=== PATIENT | male | born 1960 | race Caucasian/White ===

== ENCOUNTER 2019-05-27 17:11 | Inpatient (IN) | payer MEDICARE, MEDICAID ==
[~2019-05-27] VITALS: Ht 170.2 cm; Wt 61.8 kg
[~2019-05-27 17:11] MED LIST: ACET-1008 PO; ALEN70TA60 PO; CEPH-357 PO; COL100C PO; FLO0.4C PO; HYDR-4383 PO; LORA1TAB PO; MULT1TAB PO; REM15T PO; RISP1TAB47 PO; TAMS0.4C32 PO; VAL5T PO; ZOF4T PO; [UNRECOGNIZED DRUG - CODE] PO
[2019-05-27 17:32] LABS: BASOPHILS % (AUTO) 0.1 % (0-1); EOSINOPHILS % (AUTO) 0.1 % (0-6); HEMATOCRIT 36.5 % (42.0-52.0); HEMOGLOBIN 12.5 g/dl (14.0-17.9); LYMPHOCYTES # (AUTO) 1.1 X10'3 (1.1-4.8); LYMPHOCYTES % (AUTO) 5.6 % (21-51); MEAN CORPUSCULAR HEMOGLOBIN 29.1 PG (27.0-31.0); MEAN CORPUSCULAR HGB CONC 34.1 g/dL (33.0-36.5); MEAN CORPUSCULAR VOLUME 85.5 FL (78-98); MEAN PLATELET VOLUME 7.2 FL (7.4-10.4); MONOCYTES # (AUTO) 1.1 X10'3 (0-0.9); MONOCYTES % (AUTO) 5.7 % (2-12); NEUTROPHILS % (AUTO) 88.5 % (42-75); PLATELET COUNT 238 X10'3 (140-440); RED BLOOD COUNT 4.27 X10'6 (4.70-6.10); WHITE BLOOD COUNT 19.2 X10'3 (4.5-11.0)
[2019-05-27 17:45] LABS: PARTIAL THROMBOPLASTIN TIME 28 SECONDS (22-32)
[2019-05-27 17:48] LABS: ALANINE AMINOTRANSFERASE 46 U/L (12-78); ALBUMIN 2.9 G/DL (3.4-5.0); ALBUMIN/GLOBULIN RATIO 0.7 (1.1-1.5); ALKALINE PHOSPHATASE 121 IU/L (46-116); ANION GAP 10 (8-16); ASPARTATE AMINO TRANSFERASE 34 U/L (10-37); BILIRUBIN,TOTAL 0.4 MG/DL (0.1-1.0); BLOOD UREA NITROGEN 18 MG/DL (7-18); CALCIUM 8.3 MG/DL (8.5-10.1); CHLORIDE 99 MMOL/L (99-107); CREATININE 1.29 MG/DL (0.60-1.10); GLUCOSE 135 MG/DL (70-104); POTASSIUM 3.7 MMOL/L (3.5-5.1); SODIUM 136 MMOL/L (135-145); TOTAL CARBON DIOXIDE 26.7 MMOL/L (24-32); TOTAL PROTEIN 6.8 G/DL (6.4-8.2); eGFR 57 ML/MIN
[2019-05-27] MEDS ORDERED: normal saline 1000ML IV soln IVB ONE (18:55)
[2019-05-27] MEDS ORDERED: vancomycin/NS 1 GM ADD-VANTAGE 250 ML IV ONE (18:55)
[2019-05-27 19:47] LABS: CLARITY,URINE CLEAR (Clear); COLOR,URINE YELLOW (Yellow); GLUCOSE, URINE NEGATIVE (Neg); KETONES,URINE 40 mg/dl (Neg); LEUKOCYTE ESTERASE ,URINE NEGATIVE (Neg); NITRITES, URINE NEGATIVE (Neg); OCCULT BLOOD,URINE NEGATIVE (Neg); PROTEIN,URINE 30 mg/dl (Neg)
[2019-05-27] MEDS ORDERED: AMIT10TA6 PO (19:59)
[2019-05-27 20:02] LABS: UA COLLECTION TYPE NON-SPECIFIED
[2019-05-27 20:03] LABS: BACTERIA,URINE FEW /HPF (Neg); CAL OXALATE CRYSTALS FEW /HPF (NEGATIVE); MUCUS STRANDS FEW /LPF (Neg); RBC,URINE 0-2 /HPF (0-2); SQUAMOUS EPITHELIAL CELL,UR FEW /LPF (FEW); WBC,URINE NONE SEEN /HPF (0-4)
[2019-05-27] MEDS ORDERED: DOCU-261 PO (20:37)
[2019-05-27] MEDS ORDERED: FLUV100T3 PO (20:37)
[2019-05-27] MEDS ORDERED: IBUP-1984 PO (20:37)
[2019-05-27] MEDS ORDERED: POLY17PO10 PO (20:37)
[2019-05-27] MEDS ORDERED: PROM25TA14 PO (20:37)
[2019-05-27] MEDS ORDERED: FLUV100C2 PO (20:37)
[2019-05-27] MEDS ORDERED: normal saline 1000ml 1,000 ML IV SCH (21:09)
[2019-05-27] MEDS ORDERED: potassium CL 10mEq/100ml bag 100 ML IV PRN ×2 (21:10)
[2019-05-27] MEDS ORDERED: ondansetron/PF 4mg/2ml inj IV PRN (21:10)
[2019-05-27] MEDS ORDERED: potassium Cl 20 mEq SR tablet PO PRN (21:10)
--- NOTE | 2019-05-27 22:58 | NUR ---
NINO: [id number] PARTH: [id number] JILL: [phone]
--- NOTE | 2019-05-27 23:15 | NUR ---
Patient in room [facility]. I have received report from VAISHALI IN ER and had the opportunity to ask questions and assume patient care.
[2019-05-27 23:30] VITALS: BP 134/84
[2019-05-27] MEDS: acetaminophen 325mg tablet PO PRN (23:44)
[2019-05-28] MEDS: piperacillin/tazo 3.375gm/50ml 50 ML IV SCH ×3 (01:30→16:00)
[2019-05-28 06:12] LABS: BASOPHILS % (AUTO) 0.1 % (0-1); EOSINOPHILS % (AUTO) 0.1 % (0-6); HEMOGLOBIN 12.3 g/dl (14.0-17.9); LYMPHOCYTES % (AUTO) 5.6 % (21-51); MEAN CORPUSCULAR HEMOGLOBIN 29.2 PG (27.0-31.0); MEAN CORPUSCULAR HGB CONC 34.1 g/dL (33.0-36.5); MEAN CORPUSCULAR VOLUME 85.6 FL (78-98); MEAN PLATELET VOLUME 7.5 FL (7.4-10.4); MONOCYTES % (AUTO) 5.7 % (2-12); NEUTROPHILS # (AUTO) 16.1 X10'3 (1.8-7.7); NEUTROPHILS % (AUTO) 88.5 % (42-75); PLATELET COUNT 266 X10'3 (140-440); RED BLOOD COUNT 4.21 X10'6 (4.70-6.10); RED CELL DISTRIBUTION WIDTH 13.9 % (11.5-14.5); WHITE BLOOD COUNT 18.2 X10'3 (4.5-11.0)
[2019-05-28 06:23] LABS: ALBUMIN 2.6 G/DL (3.4-5.0); ANION GAP 12 (8-16); BLOOD UREA NITROGEN 13 MG/DL (7-18); BUN/CREATININE RATIO 14.6 (5.4-32.0); CALCIUM 7.7 MG/DL (8.5-10.1); CHLORIDE 105 MMOL/L (99-107); CREATININE 0.89 MG/DL (0.60-1.10); GLUCOSE 93 MG/DL (70-104); POTASSIUM 3.6 MMOL/L (3.5-5.1); SODIUM 141 MMOL/L (135-145); TOTAL CARBON DIOXIDE 24.1 MMOL/L (24-32); eGFR 87 ML/MIN
--- NOTE | 2019-05-28 06:45 | NUR ---
Problems reprioritized. Patient report given, questions answered & plan of care reviewed with YOSSI.
--- NOTE | 2019-05-28 06:50 | NUR ---
Patient in room [facility]. I have received report from JOLENE MONTE and had the opportunity to ask questions and assume patient care.
[2019-05-28] MEDS: vancomycin/NS 1 GM ADD-VANTAGE 250 ML IV SCH ×2 (07:37→20:19)
[2019-05-28] MEDS: docusate sod 100mg capsule PO SCH ×3 (07:37→20:12)
[2019-05-28] MEDS: lactobacillus rhamnosus 10,000 MMU CELLS/CAPSULE PO SCH ×2 (07:37→07:39)
[2019-05-28] MEDS: heparin, porcine 5000 units/ml vial SQ SCH ×2 (07:38→20:19)
[2019-05-28 08:00] VITALS: BP 110/57
[2019-05-28] MEDS: K and/or MAG REPLACEMENT MC SCH (08:00)
[2019-05-28] MEDS: fluvoxamine 25 MG tablet PO SCH ×2 (10:55→20:14)
[2019-05-28 12:00] VITALS: BP 118/64
[2019-05-28] MEDS ORDERED: proMETHazine 25mg tablet PO PRN (12:00)
[2019-05-28] MEDS: risperiDONE 0.5mg tablet PO SCH ×2 (12:11→20:14)
[2019-05-28] MEDS: HYDROcodone/acetaminophen 5mg/325mg tablet PO PRN (13:17)
--- NOTE | 2019-05-28 18:40 | NUR ---
Problems reprioritized. Patient report given, questions answered & plan of care reviewed with JOLENE Tijerina.
--- NOTE | 2019-05-28 18:41 | NUR ---
Patient in room [facility]. I have received report from JOLENE Gaona and had the opportunity to ask questions and assume patient care.
[2019-05-28 20:00] VITALS: BP 130/66
[2019-05-28] MEDS: mirtazapine 15mg tablet PO SCH (20:13)
[2019-05-29] MEDS: piperacillin/tazo 3.375gm/50ml 50 ML IV SCH
[2019-05-29 00:21] VITALS: BP 108/55
--- NOTE | 2019-05-29 06:22 | NUR ---
Problems reprioritized. Patient report given, questions answered & plan of care reviewed with JOLENE Swanson.
--- NOTE | 2019-05-29 06:25 | NUR ---
Patient in room [facility]. I have received report from JOLENE Tijerina and had the opportunity to ask questions and assume patient care.
[2019-05-29 07:07] VITALS: BP 107/48
[2019-05-29] MEDS ORDERED: VANCOMYCIN LEVEL IV ONE (07:30)
[2019-05-29 07:41] LABS: BASOPHILS # (AUTO) 0.1 X10'3 (0-0.2); BASOPHILS % (AUTO) 0.3 % (0-1); EOSINOPHILS # (AUTO) 0.1 X10'3 (0-0.9); EOSINOPHILS % (AUTO) 0.5 % (0-6); HEMATOCRIT 32.1 % (42.0-52.0); HEMOGLOBIN 10.7 g/dl (14.0-17.9); LYMPHOCYTES # (AUTO) 1.3 X10'3 (1.1-4.8); LYMPHOCYTES % (AUTO) 7.4 % (21-51); MEAN CORPUSCULAR HEMOGLOBIN 28.9 PG (27.0-31.0); MEAN CORPUSCULAR HGB CONC 33.5 g/dL (33.0-36.5); MEAN CORPUSCULAR VOLUME 86.4 FL (78-98); MEAN PLATELET VOLUME 7.2 FL (7.4-10.4); MONOCYTES # (AUTO) 1.4 X10'3 (0-0.9); MONOCYTES % (AUTO) 7.8 % (2-12); NEUTROPHILS # (AUTO) 15.2 X10'3 (1.8-7.7); PLATELET COUNT 258 X10'3 (140-440); RED BLOOD COUNT 3.71 X10'6 (4.70-6.10); RED CELL DISTRIBUTION WIDTH 13.7 % (11.5-14.5); WHITE BLOOD COUNT 18.2 X10'3 (4.5-11.0)
[2019-05-29 07:55] LABS: ALBUMIN 2.1 G/DL (3.4-5.0); ANION GAP 9 (8-16); BLOOD UREA NITROGEN 12 MG/DL (7-18); BUN/CREATININE RATIO 12.6 (5.4-32.0); CALCIUM 7.5 MG/DL (8.5-10.1); CHLORIDE 104 MMOL/L (99-107); CREATININE 0.95 MG/DL (0.60-1.10); GLUCOSE 109 MG/DL (70-104); POTASSIUM 3.2 MMOL/L (3.5-5.1); SODIUM 138 MMOL/L (135-145); TOTAL CARBON DIOXIDE 25.1 MMOL/L (24-32); eGFR 81 ML/MIN
[2019-05-29] MEDS: multivitamins, therapeutics tablet PO SCH (07:57)
[2019-05-29] MEDS: docusate sod 100mg capsule PO SCH ×4 (07:57→20:26)
[2019-05-29] MEDS: lactobacillus rhamnosus 10,000 MMU CELLS/CAPSULE PO SCH ×2 (07:57→07:59)
[2019-05-29] MEDS: risperiDONE 0.5mg tablet PO SCH ×2 (07:58→20:26)
[2019-05-29] MEDS: fluvoxamine 25 MG tablet PO SCH ×2 (07:58→22:50)
[2019-05-29] MEDS: polyethylene glycol 3350 17gm powd pack PO SCH (07:58)
[2019-05-29] MEDS: vancomycin/NS 1 GM ADD-VANTAGE 250 ML IV SCH (07:58)
[2019-05-29] MEDS: K and/or MAG REPLACEMENT MC SCH (08:00)
[2019-05-29] MEDS: heparin, porcine 5000 units/ml vial SQ SCH ×2 (08:08→20:27)
[2019-05-29] MEDS: potassium Cl 20 mEq SR tablet PO PRN ×3 (09:53→22:50)
[2019-05-29 11:00] VITALS: BP 105/66
--- NOTE | 2019-05-29 12:32 | NUR ---
F/u: Pt caregiver not at bedside during RD visit; remains mainly non-verbal. Pt has no visible signs of muscle/fat wasting; RD d/w RN for scaled wt since no true wt yet this admit. Pt PO fluctuates 100% proteins and 0-100% milk/carbs. At this time pt lacks minimum malnutrition criteria; will continue to monitor. Addendum: 05/29/19 at [address] Amended: Links added.
--- NOTE | 2019-05-29 18:39 | NUR ---
Problems reprioritized. Patient report given, questions answered & plan of care reviewed with JOLENE Mcguire.
--- NOTE | 2019-05-29 18:45 | NUR ---
Patient in room [facility]. I have received report from Candelaria FERNÁNDEZ and had the opportunity to ask questions and assume patient care. Patient is resting and shows no sign of distress.
[2019-05-29 19:00] VITALS: BP 108/64
[2019-05-29] MEDS: VANCOmycin 1250MG/NS 250ml Bag 250 ML IV SCH (20:26)
[2019-05-29] MEDS: mirtazapine 15mg tablet PO SCH (20:26)
[2019-05-29] MEDS: acetaminophen 325mg tablet PO PRN (22:50)
[2019-05-30] VITALS: BP 108/57
[2019-05-30 05:28] LABS: BASOPHILS # (AUTO) 0.1 X10'3 (0-0.2); BASOPHILS % (AUTO) 0.3 % (0-1); EOSINOPHILS # (AUTO) 0.2 X10'3 (0-0.9); EOSINOPHILS % (AUTO) 1.1 % (0-6); HEMATOCRIT 31.9 % (42.0-52.0); HEMOGLOBIN 10.7 g/dl (14.0-17.9); LYMPHOCYTES # (AUTO) 2.2 X10'3 (1.1-4.8); LYMPHOCYTES % (AUTO) 12.6 % (21-51); MEAN CORPUSCULAR HGB CONC 33.6 g/dL (33.0-36.5); MEAN CORPUSCULAR VOLUME 86.4 FL (78-98); MEAN PLATELET VOLUME 7.4 FL (7.4-10.4); MONOCYTES # (AUTO) 1.6 X10'3 (0-0.9); MONOCYTES % (AUTO) 9.1 % (2-12); NEUTROPHILS # (AUTO) 13.3 X10'3 (1.8-7.7); NEUTROPHILS % (AUTO) 76.9 % (42-75); PLATELET COUNT 290 X10'3 (140-440); RED BLOOD COUNT 3.69 X10'6 (4.70-6.10); WHITE BLOOD COUNT 17.3 X10'3 (4.5-11.0)
[2019-05-30 05:29] LABS: ALBUMIN 1.9 G/DL (3.4-5.0); ANION GAP 8 (8-16); BLOOD UREA NITROGEN 11 MG/DL (7-18); BUN/CREATININE RATIO 12.4 (5.4-32.0); CALCIUM 7.8 MG/DL (8.5-10.1); CHLORIDE 109 MMOL/L (99-107); CREATININE 0.89 MG/DL (0.60-1.10); GLUCOSE 108 MG/DL (70-104); POTASSIUM 3.8 MMOL/L (3.5-5.1); SODIUM 143 MMOL/L (135-145); TOTAL CARBON DIOXIDE 25.9 MMOL/L (24-32); eGFR 87 ML/MIN
--- NOTE | 2019-05-30 06:29 | NUR ---
Problems reprioritized. Patient report given, questions answered & plan of care reviewed with Candelaria RN. patient is resting.
--- NOTE | 2019-05-30 06:30 | NUR ---
Patient in room [facility]. I have received report from JOLENE Mcguire and had the opportunity to ask questions and assume patient care.
[2019-05-30 08:00] VITALS: BP 135/74
[2019-05-30] MEDS: K and/or MAG REPLACEMENT MC SCH (08:00)
[2019-05-30] MEDS: docusate sod 100mg capsule PO SCH ×2 (08:52→19:46)
[2019-05-30] MEDS: multivitamins, therapeutics tablet PO SCH (08:53)
[2019-05-30] MEDS: lactobacillus rhamnosus 10,000 MMU CELLS/CAPSULE PO SCH (08:53)
[2019-05-30] MEDS: fluvoxamine 25 MG tablet PO SCH ×2 (08:53→22:28)
[2019-05-30] MEDS: heparin, porcine 5000 units/ml vial SQ SCH ×2 (08:54→19:46)
[2019-05-30] MEDS: risperiDONE 0.5mg tablet PO SCH ×2 (08:55→19:46)
[2019-05-30] MEDS: VANCOmycin 1250MG/NS 250ml Bag 250 ML IV SCH ×2 (08:55→19:45)
[2019-05-30] MEDS: polyethylene glycol 3350 17gm powd pack PO SCH (08:55)
[2019-05-30 11:03] VITALS: BP 123/74
--- NOTE | 2019-05-30 12:03 | NUR ---
Patient in room [facility]. I have received report from olayinka and had the opportunity to ask questions and assume patient care.
--- NOTE | 2019-05-30 12:04 | NUR ---
Problems reprioritized. Patient report given, questions answered & plan of care reviewed with Candelaria.
[2019-05-30] MEDS: HYDROcodone/acetaminophen 5mg/325mg tablet PO PRN (12:13)
[2019-05-30 13:38] VITALS: BP 110/62
--- NOTE | 2019-05-30 16:39 | NUR ---
WOUND INFECTION EDUCATION PROVIDED BY WOUND CARE 1. Patient instructed to call their primary doctor, or go the ED immediately if any of the following symptoms occur: * Increased pain in wound * Increase in drainage from the wound * Redness in the skin surrounding the wound * Warmth in the skin surrounding the wound * Bleeding from the wound * Temperature of 101 or greater 2. If any of these occur while in the hospital tell a nurse immediately. Addendum: 05/30/19 at 1640 by Nurys Guillen RN Amended: Links added.
[2019-05-30 18:00] VITALS: BP 128/70
--- NOTE | 2019-05-30 18:17 | NUR ---
Problems reprioritized. Patient report given, questions answered & plan of care reviewed with JOLENE Mcguire.
--- NOTE | 2019-05-30 18:21 | NUR ---
Patient in room [facility]. I have received report from Candelaria FERNÁNDEZ and had the opportunity to ask questions and assume patient care.
[2019-05-30] MEDS: mirtazapine 15mg tablet PO SCH (22:27)
[2019-05-31] VITALS: BP 126/79
--- NOTE | 2019-05-31 06:30 | NUR ---
Problems reprioritized. Patient report given, questions answered & plan of care reviewed with hedy FERNÁNDEZ.Patient slept well and dened having any discomfort. Dressing was changed per woundcare order.
--- NOTE | 2019-05-31 06:34 | NUR ---
Patient in room [facility]. I have received report from JOLENE Mcguire and had the opportunity to ask questions and assume patient care.
--- NOTE | 2019-05-31 06:46 | NUR ---
Patient in room [facility]. I have received report from Alessandra and had the opportunity to ask questions and assume patient care.
--- NOTE | 2019-05-31 06:50 | NUR ---
Patient in room [facility]. I have received report from JOLENE Mcguire and had the opportunity to ask questions and assume patient care.
[2019-05-31] MEDS: K and/or MAG REPLACEMENT MC SCH (07:17)
[2019-05-31] MEDS ORDERED: VANCOMYCIN LEVEL IV ONE (07:30)
[2019-05-31 08:00] VITALS: BP 125/84
[2019-05-31 08:00] LABS: BASOPHILS # (AUTO) 0.1 X10'3 (0-0.2); BASOPHILS % (AUTO) 0.3 % (0-1); EOSINOPHILS # (AUTO) 0.3 X10'3 (0-0.9); EOSINOPHILS % (AUTO) 1.9 % (0-6); HEMOGLOBIN 11.1 g/dl (14.0-17.9); LYMPHOCYTES # (AUTO) 2.1 X10'3 (1.1-4.8); LYMPHOCYTES % (AUTO) 12.6 % (21-51); MEAN CORPUSCULAR HEMOGLOBIN 28.5 PG (27.0-31.0); MEAN CORPUSCULAR HGB CONC 32.8 g/dL (33.0-36.5); MEAN CORPUSCULAR VOLUME 86.9 FL (78-98); MEAN PLATELET VOLUME 7.5 FL (7.4-10.4); MONOCYTES # (AUTO) 1.4 X10'3 (0-0.9); NEUTROPHILS % (AUTO) 77.2 % (42-75); PLATELET COUNT 416 X10'3 (140-440); RED BLOOD COUNT 3.91 X10'6 (4.70-6.10); RED CELL DISTRIBUTION WIDTH 14.4 % (11.5-14.5); WHITE BLOOD COUNT 16.9 X10'3 (4.5-11.0)
[2019-05-31] MEDS: VANCOmycin 1250MG/NS 250ml Bag 250 ML IV SCH (08:15)
[2019-05-31] MEDS: multivitamins, therapeutics tablet PO SCH (08:18)
[2019-05-31] MEDS: fluvoxamine 25 MG tablet PO SCH ×2 (08:18→20:06)
[2019-05-31] MEDS: docusate sod 100mg capsule PO SCH ×2 (08:18→20:05)
[2019-05-31] MEDS: lactobacillus rhamnosus 10,000 MMU CELLS/CAPSULE PO SCH (08:18)
[2019-05-31] MEDS: heparin, porcine 5000 units/ml vial SQ SCH ×2 (08:19→20:06)
[2019-05-31 08:40] LABS: NUCLEATED RED BLOOD CELLS 1 /100WBC (0-0); PLATELET ESTIMATE NORMAL; TOTAL CELLS COUNTED 100
[2019-05-31 08:41] LABS: TOXIC GRANULATION 2+
[2019-05-31] MEDS: risperiDONE 0.5mg tablet PO SCH ×2 (08:47→20:05)
[2019-05-31] MEDS: polyethylene glycol 3350 17gm powd pack PO SCH (08:48)
[2019-05-31 09:15] LABS: ANION GAP 8 (8-16); BLOOD UREA NITROGEN 11 MG/DL (7-18); BUN/CREATININE RATIO 13.3 (5.4-32.0); CALCIUM 8.3 MG/DL (8.5-10.1); CHLORIDE 107 MMOL/L (99-107); CREATININE 0.83 MG/DL (0.60-1.10); GLUCOSE 96 MG/DL (70-104); SODIUM 143 MMOL/L (135-145); TOTAL CARBON DIOXIDE 28.5 MMOL/L (24-32); eGFR > 90 ML/MIN
[2019-05-31 09:58] LABS: VANCOMYCIN,TROUGH 22.7 UG/ML (6.0-14.0)
[2019-05-31] MEDS: ceFAZolin 1GM/D5W- ADD-VANTAGE 50 ML IV SCH ×3 (10:13→23:08)
[2019-05-31 10:53] VITALS: BP 108/61
--- NOTE | 2019-05-31 11:23 | NUR ---
Reassessment: Cellulitis slowly improving and wound care team following per MD notes. Pt continues with steady 75-100% PO intake on regular diet meeting nutrient needs. [facility] 05/30. Will continue to follow. Recommend: 1. continue regular diet 2. monitor need for ONS 3. weight per rx Addendum: 05/31/19 at [address] Amended: Links added.
--- NOTE | 2019-05-31 11:59 | NUR ---
Problems reprioritized. Patient report given, questions answered & plan of care reviewed with Erica.
--- NOTE | 2019-05-31 12:00 | NUR ---
Patient in room [facility]. I have received report from Jeremy WEN and had the opportunity to ask questions and assume patient care.
[2019-05-31 15:24] VITALS: BP 122/66
--- NOTE | 2019-05-31 17:29 | NUR ---
Student documentation: I have reviewed and agree with all interventions, assessments performed and documented by SN Deanna [facility].
[2019-05-31 18:00] VITALS: BP 119/75
--- NOTE | 2019-05-31 18:10 | NUR ---
Patient in room [facility]. I have received report from Alessandra FERNÁNDEZ and had the opportunity to ask questions and assume patient care.
--- NOTE | 2019-05-31 18:27 | NUR ---
Problems reprioritized. Patient report given, questions answered & plan of care reviewed with JOLENE Campoverde.
[2019-05-31] MEDS: mirtazapine 15mg tablet PO SCH (20:06)
[2019-06-01] VITALS: BP 101/50
[2019-06-01 05:56] LABS: ALBUMIN 1.9 G/DL (3.4-5.0); ANION GAP 7 (8-16); BLOOD UREA NITROGEN 15 MG/DL (7-18); CALCIUM 8.5 MG/DL (8.5-10.1); CHLORIDE 106 MMOL/L (99-107); CREATININE 0.88 MG/DL (0.60-1.10); GLUCOSE 99 MG/DL (70-104); POTASSIUM 4.6 MMOL/L (3.5-5.1); SODIUM 142 MMOL/L (135-145); TOTAL CARBON DIOXIDE 28.8 MMOL/L (24-32); eGFR 89 ML/MIN
[2019-06-01 05:57] LABS: BASOPHILS # (AUTO) 0.2 X10'3 (0-0.2); BASOPHILS % (AUTO) 1.3 % (0-1); EOSINOPHILS # (AUTO) 0.4 X10'3 (0-0.9); EOSINOPHILS % (AUTO) 2.3 % (0-6); HEMATOCRIT 31.4 % (42.0-52.0); HEMOGLOBIN 10.6 g/dl (14.0-17.9); LYMPHOCYTES # (AUTO) 2.6 X10'3 (1.1-4.8); LYMPHOCYTES % (AUTO) 14.8 % (21-51); MEAN CORPUSCULAR HGB CONC 33.8 g/dL (33.0-36.5); MEAN CORPUSCULAR VOLUME 85.8 FL (78-98); MEAN PLATELET VOLUME 7.3 FL (7.4-10.4); MONOCYTES # (AUTO) 1.2 X10'3 (0-0.9); MONOCYTES % (AUTO) 6.8 % (2-12); NEUTROPHILS # (AUTO) 13.2 X10'3 (1.8-7.7); NEUTROPHILS % (AUTO) 74.8 % (42-75); PLATELET COUNT 469 X10'3 (140-440); RED BLOOD COUNT 3.66 X10'6 (4.70-6.10); RED CELL DISTRIBUTION WIDTH 14.2 % (11.5-14.5); WHITE BLOOD COUNT 17.7 X10'3 (4.5-11.0)
--- NOTE | 2019-06-01 06:00 | NUR ---
Problems reprioritized. Patient report given, questions answered & plan of care reviewed with Jessica FERNÁNDEZ.
[2019-06-01 06:56] LABS: PLATELET ESTIMATE NORMAL; TOTAL CELLS COUNTED 100
[2019-06-01 06:57] LABS: POLYCHROMASIA 1+; TOXIC GRANULATION 2+
--- NOTE | 2019-06-01 07:06 | NUR ---
Patient in room [facility]. I have received report from Nirali FERNÁNDEZ and had the opportunity to ask questions and assume patient care.
[2019-06-01 07:55] VITALS: BP 123/65
[2019-06-01] MEDS: K and/or MAG REPLACEMENT MC SCH (07:59)
[2019-06-01] MEDS: lactobacillus rhamnosus 10,000 MMU CELLS/CAPSULE PO SCH (08:07)
[2019-06-01] MEDS: polyethylene glycol 3350 17gm powd pack PO SCH (08:08)
[2019-06-01] MEDS: fluvoxamine 25 MG tablet PO SCH ×2 (08:08→22:14)
[2019-06-01] MEDS: risperiDONE 0.5mg tablet PO SCH ×2 (08:08→19:46)
[2019-06-01] MEDS: docusate sod 100mg capsule PO SCH ×2 (08:08→19:46)
[2019-06-01] MEDS: ceFAZolin 1GM/D5W- ADD-VANTAGE 50 ML IV SCH ×2 (08:08→15:48)
[2019-06-01] MEDS: multivitamins, therapeutics tablet PO SCH (08:08)
[2019-06-01] MEDS: heparin, porcine 5000 units/ml vial SQ SCH ×2 (08:09→19:46)
[2019-06-01 11:52] VITALS: BP 116/64
[2019-06-01] MEDS: silver sulfadiazine cream 400gm jar TP SCH (15:48)
--- NOTE | 2019-06-01 18:28 | NUR ---
Patient in room [facility]. I have received report from JOLENE Lopez and had the opportunity to ask questions and assume patient care.
--- NOTE | 2019-06-01 18:28 | NUR ---
Problems reprioritized. Patient report given, questions answered & plan of care reviewed with Jace FERNÁNDEZ.
[2019-06-01] MEDS: mirtazapine 15mg tablet PO SCH (22:14)
[2019-06-02] VITALS: BP 115/61
[2019-06-02] MEDS: ceFAZolin 1GM/D5W- ADD-VANTAGE 50 ML IV SCH ×4 (00:41→23:47)
--- NOTE | 2019-06-02 06:40 | NUR ---
Problems reprioritized. Patient report given, questions answered & plan of care reviewed with JOLENE Vidal and JOLENE Montenegro.
[2019-06-02 08:00] VITALS: BP 119/66
[2019-06-02] MEDS: K and/or MAG REPLACEMENT MC SCH (08:00)
[2019-06-02] MEDS: docusate sod 100mg capsule PO SCH ×2 (08:12→20:53)
[2019-06-02] MEDS: risperiDONE 0.5mg tablet PO SCH ×2 (08:12→20:53)
[2019-06-02] MEDS: fluvoxamine 25 MG tablet PO SCH ×2 (08:12→20:53)
[2019-06-02] MEDS: polyethylene glycol 3350 17gm powd pack PO SCH (08:12)
[2019-06-02] MEDS: multivitamins, therapeutics tablet PO SCH (08:12)
[2019-06-02] MEDS: lactobacillus rhamnosus 10,000 MMU CELLS/CAPSULE PO SCH (08:12)
[2019-06-02] MEDS: heparin, porcine 5000 units/ml vial SQ SCH ×2 (08:13→20:53)
[2019-06-02 09:58] LABS: BASOPHILS # (AUTO) 0.1 X10'3 (0-0.2); BASOPHILS % (AUTO) 0.4 % (0-1); EOSINOPHILS # (AUTO) 0.4 X10'3 (0-0.9); EOSINOPHILS % (AUTO) 2.2 % (0-6); HEMATOCRIT 35.5 % (42.0-52.0); HEMOGLOBIN 11.7 g/dl (14.0-17.9); LYMPHOCYTES # (AUTO) 2.4 X10'3 (1.1-4.8); MEAN CORPUSCULAR HEMOGLOBIN 28.5 PG (27.0-31.0); MEAN CORPUSCULAR VOLUME 86.3 FL (78-98); MEAN PLATELET VOLUME 7.4 FL (7.4-10.4); MONOCYTES # (AUTO) 0.9 X10'3 (0-0.9); MONOCYTES % (AUTO) 4.8 % (2-12); NEUTROPHILS # (AUTO) 14.9 X10'3 (1.8-7.7); NEUTROPHILS % (AUTO) 79.6 % (42-75); PLATELET COUNT 598 X10'3 (140-440); RED BLOOD COUNT 4.11 X10'6 (4.70-6.10); RED CELL DISTRIBUTION WIDTH 14.1 % (11.5-14.5); WHITE BLOOD COUNT 18.7 X10'3 (4.5-11.0)
[2019-06-02 10:33] LABS: TOTAL CELLS COUNTED 100
[2019-06-02 10:38] LABS: PLATELET ESTIMATE INCREASED; POLYCHROMASIA 1+; TOXIC GRANULATION 2+
[2019-06-02 11:00] VITALS: BP 122/72
[2019-06-02] MEDS: silver sulfadiazine cream 400gm jar TP SCH (12:27)
[2019-06-02 13:30] VITALS: BP 88/35
[2019-06-02 14:02] VITALS: BP 99/55
[2019-06-02 18:00] VITALS: BP 133/71
--- NOTE | 2019-06-02 18:10 | NUR ---
Patient in room [facility]. I have received report from JOLENE Vidal and had the opportunity to ask questions and assume patient care.
[2019-06-02] MEDS: mirtazapine 15mg tablet PO SCH (20:52)
[2019-06-03] VITALS: BP 137/76
--- NOTE | 2019-06-03 06:49 | NUR ---
Problems reprioritized. Patient report given, questions answered & plan of care reviewed with JOLENE Galdamez and JOLENE Almaguer.
--- NOTE | 2019-06-03 06:55 | NUR ---
Patient in room [facility]. I have received report from Jace FERNÁNDEZ and had the opportunity to ask questions and assume patient care.
[2019-06-03 07:00] VITALS: BP 107/61
--- NOTE | 2019-06-03 07:31 | NUR ---
Patient in room [facility]. I have received report from DANNIELLE FERNÁNDEZ and had the opportunity to ask questions and assume patient care.
[2019-06-03] MEDS: lactobacillus rhamnosus 10,000 MMU CELLS/CAPSULE PO SCH (07:46)
[2019-06-03] MEDS: docusate sod 100mg capsule PO SCH (07:47)
[2019-06-03] MEDS: polyethylene glycol 3350 17gm powd pack PO SCH (07:48)
[2019-06-03] MEDS: fluvoxamine 25 MG tablet PO SCH (07:48)
[2019-06-03] MEDS: multivitamins, therapeutics tablet PO SCH (07:49)
[2019-06-03] MEDS: risperiDONE 0.5mg tablet PO SCH (07:49)
[2019-06-03] MEDS: heparin, porcine 5000 units/ml vial SQ SCH (07:49)
[2019-06-03] MEDS: ceFAZolin 1GM/D5W- ADD-VANTAGE 50 ML IV SCH (07:58)
[2019-06-03] MEDS: K and/or MAG REPLACEMENT MC SCH (08:00)
[2019-06-03 11:00] VITALS: BP 100/51
[2019-06-03] MEDS: silver sulfadiazine cream 400gm jar TP SCH (12:34)
[2019-06-03] MEDS ORDERED: CEPH500C2 PO (12:38)
--- NOTE | 2019-06-03 14:44 | NUR ---
Patient D/C to [facility]. Wound care given and dressing changed before discharge. IV removed, medication and discharge instruction given. Patient left this hospital accompanied by [id number] via [email or web address].
== END 2019-06-03 13:50 | disposition home health service (06) | DRG 871 ==
LOC: ER 17:11 → SUR 3N 23:15
PROVIDERS: ADMIT Internal Medicine; ATTEND Internal Medicine
DX: A41.9 Sepsis, unspecified organism (principal); E43 Unspecified severe protein-calorie malnutrition; L03.115 Cellulitis of right lower limb; D64.9 Anemia, unspecified; E87.6 Hypokalemia; M81.0 Age-related osteoporosis without current pathological fracture; Z88.8 Allergy status to other drugs, medicaments and biological substances; Z79.899 Other long term (current) drug therapy
CPT/HCPCS: 36415; 71045; 76937; 80048; 80053; 80202; 81001; 83605; 84145; 84484; 85025; 85610; 85730; 87040; 87081; 93005; 93971; 96365; 97110; 97116; 97161; 97530; 99285; G0378; J0690; J1644; J2543; J3370; Q0169

== ENCOUNTER 2020-03-10 10:43 | Day surgery (SDC) | payer MEDICARE, MEDICAID ==
[~2020-03-10] VITALS: Ht 170.2 cm; Wt 51.4 kg
[~2020-03-10 10:43] MED LIST changes: -ACET-1008 PO; +AMIT10TA6 PO; -CEPH-357 PO; +DOCU-261 PO; -FLO0.4C PO; +FLUV100C2 PO; +FLUV100T3 PO; -HYDR-4383 PO; +IBUP-1984 PO; -LORA1TAB PO; +POLY17PO10 PO; +PROM25TA14 PO; -TAMS0.4C32 PO; -VAL5T PO; -ZOF4T PO; -[UNRECOGNIZED DRUG - CODE] PO
[2020-03-10 10:55] VITALS: BP 145/73
[2020-03-10] MEDS ORDERED: fentaNYL/PF 50MCG/1 ML 2ML syringe ONE (10:56)
[2020-03-10] MEDS ORDERED: MIDAZolam 1mg/ml 10ml vial ONE (10:56)
[2020-03-10] MEDS ORDERED: LIDOcaine Viscous 15ml cup ONE (10:58)
[2020-03-10 11:55] VITALS: BP 127/72
[2020-03-10 12:05] VITALS: BP 130/77
[2020-03-10 12:15] VITALS: BP 124/63
[2020-03-10 12:25] VITALS: BP 130/63
== END 2020-03-10 12:30 | disposition home or self-care (01) ==
LOC: GI LAB 10:43
PROVIDERS: ATTEND Internal Medicine Gastroenterology
DX: Z12.11 Encounter for screening for malignant neoplasm of colon (principal); R63.4 Abnormal weight loss; R10.13 Epigastric pain; K64.8 Other hemorrhoids; K63.89 Other specified diseases of intestine; K31.7 Polyp of stomach and duodenum; K29.50 Unspecified chronic gastritis without bleeding
CPT/HCPCS: 43239; 43251; 99153; C1773; G0121; G0500; J2250; J3010; J7040; 45378; 88305; 88342; 99152

== ENCOUNTER 2021-11-08 14:34 | Emergency (ER) | payer MEDICARE, MEDICAID ==
[~2021-11-08] VITALS: Ht 160 cm; Wt 65.0 kg
[~2021-11-08 14:34] MED LIST changes: -DOCU-261 PO; +DOCU-337 PO; +FLUV100T21 PO; -FLUV100T3 PO
[2021-11-08 14:45] VITALS: BP 149/77
[2021-11-08] MEDS ORDERED: SULF1TAB49 PO (16:26)
[2021-11-08] MEDS ORDERED: IBUP-1986 PO (16:26)
[2021-11-08] MEDS ORDERED: ibuprofen tablet 400 MG TABLET PO ONE (16:30)
[2021-11-08] MEDS ORDERED: sulfamethoxazole/trimethoprim DS (800/160mg) tablet PO ONE (16:30)
== END 2021-11-08 16:52 | disposition home or self-care (01) ==
LOC: ER 14:35
DX: L02.416 Cutaneous abscess of left lower limb (principal); R62.50 Unspecified lack of expected normal physiological development in childhood; G43.909 Migraine, unspecified, not intractable, without status migrainosus; M81.0 Age-related osteoporosis without current pathological fracture; Z98.890 Other specified postprocedural states; Z79.899 Other long term (current) drug therapy; Z79.2 Long term (current) use of antibiotics
CPT/HCPCS: 99283